=== PATIENT | female | born 1960 | race Hispanic/Latino ===

== ENCOUNTER 2018-11-26 19:11 | Inpatient (IN) | payer MEDICAID ==
[~2018-11-26] VITALS: Ht 165.1 cm; Wt 67.4 kg
[2018-11-26 20:09] LABS: BASOPHILS % (AUTO) 0.5 % (0.0-5.0); EOSINOPHILS % (AUTO) 1.2 % (0.0-8.0); LYMPHOCYTES % (AUTO) 18.2 % (21.0-51.0); MEAN CORPUSCULAR HEMOGLOBIN 26.2 pg (27.0-33.0); MEAN CORPUSCULAR HGB CONC 32.8 g/dL (32.0-36.0); MEAN CORPUSCULAR VOLUME 79.9 fL (79-99); MONOCYTES % (AUTO) 7.2 % (3.0-13.0); NEUTROPHILS % (AUTO) 72.9 % (40.0-77.0); PLATELET COUNT (AUTO) 382 K/uL (130-400); RED BLOOD CELL COUNT(AUTO) 4.14 MIL/uL (4.00-5.50); RED CELL DISTRIBUTION WIDTH 14.8 % (11.0-15.5); WHITE BLOOD COUNT (AUTO) 8.7 K/uL (4.8-10.8)
[2018-11-26 20:13] LABS: APPEARANCE,URINE Clear (CLEAR); BILIRUBIN,URINE Negative (NEGATIVE); COLOR,URINE Yellow (YELLOW); GLUCOSE, URINE (UA) TRACE mg/dL (NEGATIVE); KETONES,URINE Trace mg/dL (NEGATIVE); LEUKOCYTE ESTERASE ,URINE Large (NEGATIVE); NITRATE,URINE Negative (NEGATIVE); OCCULT BLOOD,URINE Small (NEGATIVE); PH,URINE 6.5 (5.0-8.0); PROTEIN,URINE Negative (NEGATIVE)
[2018-11-26 20:16] LABS: CREATININE 0.8 mg/dL (0.5-1.5); POTASSIUM 3.9 mmol/L (3.5-5.1)
[2018-11-26 20:24] LABS: ALBUMIN 3.1 g/dL (3.5-5.0); BILIRUBIN,TOTAL 0.2 mg/dL (0.2-1.0); CRP QUANTITATIVE 22.7 mg/L (0.00-9.0); TOTAL PROTEIN, SERUM 7.9 g/dL (6.0-8.3)
[2018-11-26 20:39] LABS: BACTERIA,URINE Few /HPF (None Seen); RBC,URINE 0-1 /HPF (0-1)
[2018-11-26 20:51] LABS: INR 0.91 (0.85-1.15); PROTHROMBIN TIME 9.6 SEC (9.6-11.6)
[2018-11-26 21:24] LABS: ERYTHROCYTE SEDIMENTATION RATE 95 MM/HR (0-30)
[2018-11-26] MEDS ORDERED: LEVOFLOXACIN 500 MG TABLET ONE (21:54)
[2018-11-26] MEDS ORDERED: DEXTROSE 50%-WATER 50 ML DISP.SYRIN IV PRN (22:30)
[2018-11-26] MEDS ORDERED: GLUCAGON 1MG KIT 1 MG ML IM PRN (22:30)
[2018-11-26 23:01] LABS: HEMOGLOBIN A1C 14.5 % (4.0-6.0)
[2018-11-26] MEDS: SODIUM CHLORIDE 0.9% 1000ML 1,000 ML IV SCH (23:35)
[2018-11-26] MEDS ORDERED: SODIUM CHLORIDE 0.9% 1000ML 1,000 ML IV ONE (23:43)
[2018-11-26] MEDS ORDERED: ONDANSETRON HCL 4 MG/2 ML VIAL IV PRN (23:45)
[2018-11-26] MEDS ORDERED: NITROGLYCERIN 0.4 MG SL TAB SL PRN (23:45)
[2018-11-26] MEDS ORDERED: ACETAMINOPHEN 325 MG TAB PO PRN (23:45)
[2018-11-27] VITALS (7 sets, daily range): BP systolic 154–198; BP diastolic 77–98
[2018-11-27] MEDS ORDERED: IOHEXOL-350 50ML VIAL IV ONE (01:03)
[2018-11-27] MEDS ORDERED: FERR-82 PO (02:10)
[2018-11-27] MEDS ORDERED: INSU200I4 SQ (02:10)
[2018-11-27] MEDS ORDERED: METO100T14 PO (02:10)
[2018-11-27] MEDS ORDERED: LISI40TA4 PO (02:10)
[2018-11-27] MEDS ORDERED: ROSU20TA31 PO (02:10)
[2018-11-27] MEDS ORDERED: INSU200I SQ (02:10)
[2018-11-27] MEDS ORDERED: ASPI-1197 PO (02:10)
[2018-11-27] MEDS: ZOSYN 3.375GM+NS 50ML 50 ML IV SCH ×2 (02:40→21:30)
[2018-11-27 04:55] LABS: BASOPHILS % (AUTO) 0.4 % (0.0-5.0); HEMATOCRIT 29.2 % (36-48); LYMPHOCYTES % (AUTO) 15.7 % (21.0-51.0); MEAN CORPUSCULAR HGB CONC 32.4 g/dL (32.0-36.0); MEAN CORPUSCULAR VOLUME 80.1 fL (79-99); MONOCYTES % (AUTO) 8.3 % (3.0-13.0); NEUTROPHILS % (AUTO) 74.6 % (40.0-77.0); PLATELET COUNT (AUTO) 341 K/uL (130-400); RED BLOOD CELL COUNT(AUTO) 3.65 MIL/uL (4.00-5.50); RED CELL DISTRIBUTION WIDTH 14.6 % (11.0-15.5); WHITE BLOOD COUNT (AUTO) 8.7 K/uL (4.8-10.8)
[2018-11-27 05:11] LABS: ALBUMIN 2.5 g/dL (3.5-5.0); BILIRUBIN,TOTAL 0.1 mg/dL (0.2-1.0); CREATININE 0.8 mg/dL (0.5-1.5); POTASSIUM 4.3 mmol/L (3.5-5.1); TOTAL PROTEIN, SERUM 6.8 g/dL (6.0-8.3)
[2018-11-27] MEDS: INSULIN HUMULIN R 100 UNIT/ML 3ML SQ SCH ×4 (06:55→21:00)
[2018-11-27] MEDS: ACETAMINOPHEN 325 MG TAB PO PRN (09:11)
[2018-11-27] MEDS: SODIUM CHLORIDE 0.9% 1000ML 1,000 ML IV SCH ×2 (09:12→21:19)
[2018-11-27] MEDS: ENOXAPARIN SODIUM 30 MG/0.3 ML SQ SCH (09:12)
[2018-11-27] MEDS: FAMOTIDINE 20MG TAB 20 MG TAB PO SCH ×2 (09:12→21:19)
[2018-11-27] MEDS ORDERED: ZOSYN 3.375GM+NS 50ML 50 ML IV SCH (10:00)
--- NOTE | 2018-11-27 16:00 | NUR ---
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
[2018-11-27] MEDS ORDERED: IOHEXOL-350 75 ML VIAL IV ONE (16:18)
[2018-11-27] MEDS: CLINDAMYCIN 600 MG/D5% WATER 50 ML IV SCH ×2 (16:51→21:32)
[2018-11-27] MEDS ORDERED: LISINOPRIL 40 MG TABLET ONE (19:06)
[2018-11-27] MEDS ORDERED: METOPROLOL TARTRATE 50 MG TAB ONE (19:07)
[2018-11-27] MEDS: LISINOPRIL 40 MG TABLET PO SCH (19:08)
[2018-11-27] MEDS: METOPROLOL TARTRATE 50 MG TAB PO SCH (19:08)
[2018-11-27] MEDS: INSULIN LISPRO 100 UNIT/ML 3ML SQ SCH (19:15)
[2018-11-27] MEDS: ATORVASTATIN CALCIUM 40 MG TABLET PO SCH (21:19)
[2018-11-28] VITALS: BP 163/86
[2018-11-28] MEDS: CLINDAMYCIN 600 MG/D5% WATER 50 ML IV SCH ×4 (02:57→21:22)
[2018-11-28 04:00] VITALS: BP 164/84
[2018-11-28] MEDS: INSULIN HUMULIN R 100 UNIT/ML 3ML SQ SCH ×4 (06:09→21:27)
[2018-11-28 06:13] LABS: BASOPHILS % (AUTO) 0.6 % (0.0-5.0); EOSINOPHILS % (AUTO) 1.4 % (0.0-8.0); HEMATOCRIT 28.3 % (36-48); LYMPHOCYTES % (AUTO) 21.4 % (21.0-51.0); MEAN CORPUSCULAR HGB CONC 32.4 g/dL (32.0-36.0); MEAN CORPUSCULAR VOLUME 80.3 fL (79-99); NEUTROPHILS % (AUTO) 68.6 % (40.0-77.0); PLATELET COUNT (AUTO) 341 K/uL (130-400); RED BLOOD CELL COUNT(AUTO) 3.53 MIL/uL (4.00-5.50); RED CELL DISTRIBUTION WIDTH 14.8 % (11.0-15.5); WHITE BLOOD COUNT (AUTO) 7.6 K/uL (4.8-10.8)
[2018-11-28 06:36] LABS: CREATININE 0.7 mg/dL (0.5-1.5); POTASSIUM 4.4 mmol/L (3.5-5.1)
[2018-11-28] MEDS: SODIUM CHLORIDE 0.9% 1000ML 1,000 ML IV SCH ×2 (06:50→15:58)
[2018-11-28] MEDS: INSULIN LISPRO 100 UNIT/ML 3ML SQ SCH ×3 (06:51→17:00)
[2018-11-28] MEDS: INSULIN GLARGINE 100 UNITS/ML 10 ML VIAL SQ SCH ×2 (06:52→18:45)
[2018-11-28 07:30] VITALS: BP 134/72
[2018-11-28] MEDS: FAMOTIDINE 20MG TAB 20 MG TAB PO SCH ×2 (09:45→21:15)
[2018-11-28] MEDS: ASPIRIN 81MG TAB.CHEW PO SCH (09:45)
[2018-11-28] MEDS: FERROUS SULFATE 325 MG TABLET.DR PO SCH (09:46)
[2018-11-28] MEDS: METOPROLOL TARTRATE 50 MG TAB PO SCH ×2 (09:46→21:15)
[2018-11-28] MEDS: ACETAMINOPHEN 325 MG TAB PO PRN (09:46)
[2018-11-28] MEDS: ENOXAPARIN SODIUM 30 MG/0.3 ML SQ SCH (09:47)
[2018-11-28 11:00] VITALS: BP 152/78
[2018-11-28] MEDS: DEXAMETHASONE SOD PHOSPHATE 4 MG/ML 1ML VIAL IVP SCH ×2 (13:26→18:46)
[2018-11-28] MEDS ORDERED: GADODIAMIDE 10 MMOL/20 ML VIAL IV ONE (14:37)
[2018-11-28] MEDS ORDERED: SILVER NITRATE APPLICATOR 1 SWAB TP SCH (14:45)
[2018-11-28 16:00] VITALS: BP 161/89
[2018-11-28 20:00] VITALS: BP 156/84
[2018-11-28] MEDS: LISINOPRIL 40 MG TABLET PO SCH (21:16)
[2018-11-28] MEDS: ATORVASTATIN CALCIUM 40 MG TABLET PO SCH (21:16)
[2018-11-29] VITALS (7 sets, daily range): BP systolic 142–165; BP diastolic 69–83
[2018-11-29] MEDS: DEXAMETHASONE SOD PHOSPHATE 4 MG/ML 1ML VIAL IVP SCH ×5 (00:10→23:26)
[2018-11-29] MEDS: SODIUM CHLORIDE 0.9% 1000ML 1,000 ML IV SCH (03:28)
[2018-11-29] MEDS: CLINDAMYCIN 600 MG/D5% WATER 50 ML IV SCH ×2 (03:28→10:07)
[2018-11-29] MEDS: INSULIN HUMULIN R 100 UNIT/ML 3ML SQ SCH ×4 (06:43→20:57)
[2018-11-29 06:46] LABS: HEMATOCRIT 30.1 % (36-48); MEAN CORPUSCULAR HEMOGLOBIN 25.9 pg (27.0-33.0); MEAN CORPUSCULAR HGB CONC 32.4 g/dL (32.0-36.0); MEAN CORPUSCULAR VOLUME 79.9 fL (79-99); NUCLEATED RED BLOOD CELLS 0.1 % (0.0-0.19); PLATELET COUNT (AUTO) 432 K/uL (130-400); RED BLOOD CELL COUNT(AUTO) 3.77 MIL/uL (4.00-5.50); RED CELL DISTRIBUTION WIDTH 14.9 % (11.0-15.5); WHITE BLOOD COUNT (AUTO) 9.1 K/uL (4.8-10.8)
[2018-11-29 06:55] LABS: POTASSIUM 4.4 mmol/L (3.5-5.1)
[2018-11-29] MEDS ORDERED: GADODIAMIDE 10 MMOL/20 ML VIAL IV ONE (07:35)
[2018-11-29] MEDS: FAMOTIDINE 20MG TAB 20 MG TAB PO SCH ×2 (09:57→20:52)
[2018-11-29] MEDS: ASPIRIN 81MG TAB.CHEW PO SCH (09:57)
[2018-11-29] MEDS: METOPROLOL TARTRATE 50 MG TAB PO SCH ×2 (09:57→20:52)
[2018-11-29] MEDS: POLYETHYLENE GLYCOL 3350 17 GM POWD.PACK PO SCH (09:57)
[2018-11-29] MEDS: FERROUS SULFATE 325 MG TABLET.DR PO SCH (09:57)
[2018-11-29] MEDS: ENOXAPARIN SODIUM 30 MG/0.3 ML SQ SCH (10:00)
[2018-11-29] MEDS: INSULIN LISPRO 100 UNIT/ML 3ML SQ SCH ×3 (10:05→16:57)
[2018-11-29] MEDS: INSULIN GLARGINE 100 UNITS/ML 10 ML VIAL SQ SCH ×2 (10:06→16:58)
[2018-11-29] MEDS: ASPIRIN 81 MG EC TAB PO SCH (10:16)
[2018-11-29] MEDS ORDERED: ARTIFICAL TEARS SOL 15 ML OD PRN (11:45)
[2018-11-29] MEDS: ZOSYN 3.375GM+NS 50ML 50 ML IV SCH ×2 (13:02→20:52)
--- NOTE | 2018-11-29 15:58 | NUR ---
patient returned from bone scan. completed.
--- NOTE | 2018-11-29 17:00 | NUR ---
wound care performed to left breast. Old dressing removed and discarded. Cleansed left breast with Ns, patted dry, painted with betadine, covered with 4x4 gauze and abd pad. pt tolerated well.
[2018-11-29] MEDS ORDERED: ARTIFICAL TEARS SOL 15 ML OU PRN (17:45)
[2018-11-29] MEDS: ATORVASTATIN CALCIUM 40 MG TABLET PO SCH (20:52)
[2018-11-29] MEDS: LISINOPRIL 40 MG TABLET PO SCH (20:52)
[2018-11-30] VITALS (7 sets, daily range): BP systolic 143–191; BP diastolic 67–92
[2018-11-30] MEDS: HYDROCODONE/ACETAMINOPHEN 5/325 MG TAB PO PRN ×2 (01:29→21:22)
--- NOTE | 2018-11-30 01:29 | NUR ---
HEADACHE Pt c/o of headache,medicated with Hydrocodone.
--- NOTE | 2018-11-30 02:29 | NUR ---
MED EFFECT Pt quietly resting,eyes closed.
[2018-11-30] MEDS: ZOSYN 3.375GM+NS 50ML 50 ML IV SCH ×3 (04:20→21:21)
[2018-11-30 05:13] LABS: HEMATOCRIT 26.4 % (36-48); MEAN CORPUSCULAR HEMOGLOBIN 26.3 pg (27.0-33.0); MEAN CORPUSCULAR VOLUME 79.5 fL (79-99); PLATELET COUNT (AUTO) 322 K/uL (130-400); RED BLOOD CELL COUNT(AUTO) 3.31 MIL/uL (4.00-5.50); RED CELL DISTRIBUTION WIDTH 14.8 % (11.0-15.5); WHITE BLOOD COUNT (AUTO) 12.8 K/uL (4.8-10.8)
[2018-11-30 05:30] LABS: INR 0.97 (0.85-1.15); PARTIAL THROMBOPLASTIN TIME 26.5 SEC (26.3-35.5); PROTHROMBIN TIME 10.2 SEC (9.6-11.6)
[2018-11-30] MEDS: INSULIN HUMULIN R 100 UNIT/ML 3ML SQ SCH ×4 (05:33→21:19)
[2018-11-30 05:37] LABS: CREATININE 0.8 mg/dL (0.5-1.5)
[2018-11-30] MEDS: DEXAMETHASONE SOD PHOSPHATE 4 MG/ML 1ML VIAL IVP SCH ×3 (05:58→17:55)
[2018-11-30] MEDS: INSULIN LISPRO 100 UNIT/ML 3ML SQ SCH ×3 (06:00→16:58)
[2018-11-30] MEDS: INSULIN GLARGINE 100 UNITS/ML 10 ML VIAL SQ SCH ×2 (06:00→16:57)
--- NOTE | 2018-11-30 06:53 | NUR ---
SHOWER Pt took a shower,dressing to left breast got wet,dressing changed,bleeding noted,pressure applied.Covered with 4x4,abd pad,and secured with medipore tape.Jesus well.
[2018-11-30] MEDS: ENOXAPARIN SODIUM 30 MG/0.3 ML SQ SCH (07:22)
[2018-11-30] MEDS: POLYETHYLENE GLYCOL 3350 17 GM POWD.PACK PO SCH (09:00)
[2018-11-30] MEDS: ASPIRIN 81 MG EC TAB PO SCH (09:00)
--- NOTE | 2018-11-30 12:20 | NUR ---
Patient taken for Breast Biopsy
--- NOTE | 2018-11-30 13:45 | NUR ---
U/S GD LEFT BREAST MASS BX PROCEDURE PERFORMED BY DR GARCIA . PUNCTURE SITE LEFT BREAST AND PATIENT TOLERATED PROCEDURE WELL. SPECIMEN X 3 COLLECTED AND SENT TO LAB. END OF PROCEDURE AT 1340. TISSUE MARKER DEPLOYED. BIOPSY NEEDLE REMOVED AND DRESSING APPLIED. NO BLEEDING NOTED. . REPORT GIVEN TO Kay ALEXANDER RN AND PATIENT TRANSPORTED TO 327 VIA W/C, STABLE, AAO X3 WITH NO C/O PAIN.
[2018-11-30] MEDS: METOPROLOL TARTRATE 50 MG TAB PO SCH ×2 (14:14→21:22)
[2018-11-30] MEDS: FAMOTIDINE 20MG TAB 20 MG TAB PO SCH ×2 (14:14→21:21)
[2018-11-30] MEDS: FERROUS SULFATE 325 MG TABLET.DR PO SCH (14:14)
--- NOTE | 2018-11-30 14:15 | NUR ---
Patient returned from breast biopsy in stable condition. Bed in lowest position, call light placed within reach
[2018-11-30] MEDS ORDERED: HYDRALAZINE HCL 20 MG/ML VIAL IM PRN (14:30)
--- NOTE | 2018-11-30 15:00 | NUR ---
ANNETTE AlvaradoP rounded on pt, pt to continue with antibiotic therapy
[2018-11-30] MEDS ORDERED: HYDRALAZINE HCL 20 MG/ML VIAL IM SCH (16:00)
[2018-11-30] MEDS ORDERED: HYDRALAZINE HCL 20 MG/ML VIAL IV SCH (18:30)
--- NOTE | 2018-11-30 20:00 | NUR ---
DRESSING Left breast dressing dry and intact.
[2018-11-30] MEDS: ATORVASTATIN CALCIUM 40 MG TABLET PO SCH (21:21)
[2018-11-30] MEDS: LISINOPRIL 40 MG TABLET PO SCH (21:22)
[2018-12-01] MEDS: DEXAMETHASONE SOD PHOSPHATE 4 MG/ML 1ML VIAL IVP SCH ×3 (00:20→12:40)
[2018-12-01 03:51] VITALS: BP 154/84
[2018-12-01] MEDS: ZOSYN 3.375GM+NS 50ML 50 ML IV SCH ×2 (04:37→12:00)
[2018-12-01] MEDS: INSULIN HUMULIN R 100 UNIT/ML 3ML SQ SCH ×2 (05:42→11:30)
[2018-12-01] MEDS: INSULIN GLARGINE 100 UNITS/ML 10 ML VIAL SQ SCH (06:31)
[2018-12-01] MEDS: INSULIN LISPRO 100 UNIT/ML 3ML SQ SCH ×2 (06:32→12:44)
[2018-12-01 06:47] LABS: HEMATOCRIT 27.5 % (36-48); MEAN CORPUSCULAR HEMOGLOBIN 25.6 pg (27.0-33.0); MEAN CORPUSCULAR HGB CONC 32.1 g/dL (32.0-36.0); MEAN CORPUSCULAR VOLUME 79.8 fL (79-99); PLATELET COUNT (AUTO) 359 K/uL (130-400); RED BLOOD CELL COUNT(AUTO) 3.45 MIL/uL (4.00-5.50); RED CELL DISTRIBUTION WIDTH 14.9 % (11.0-15.5); WHITE BLOOD COUNT (AUTO) 11.2 K/uL (4.8-10.8)
[2018-12-01 07:00] VITALS: BP 134/64
[2018-12-01 07:02] LABS: CREATININE 0.7 mg/dL (0.5-1.5)
[2018-12-01] MEDS: ENOXAPARIN SODIUM 30 MG/0.3 ML SQ SCH (10:05)
[2018-12-01] MEDS: ASPIRIN 81 MG EC TAB PO SCH (10:05)
[2018-12-01] MEDS: METOPROLOL TARTRATE 50 MG TAB PO SCH (10:05)
[2018-12-01] MEDS: POLYETHYLENE GLYCOL 3350 17 GM POWD.PACK PO SCH (10:05)
[2018-12-01] MEDS: FAMOTIDINE 20MG TAB 20 MG TAB PO SCH (10:06)
[2018-12-01] MEDS: FERROUS SULFATE 325 MG TABLET.DR PO SCH (10:07)
[2018-12-01 11:00] VITALS: BP 164/83
[2018-12-01] MEDS ORDERED: CEPH500T PO (13:22)
[2018-12-01] MEDS ORDERED: DEXA2 PO (13:30)
[2018-12-01] MEDS ORDERED: AMLODIPINE BESYLATE 5 MG TAB PO SCH (14:00)
[2018-12-01] MEDS ORDERED: METFORMIN HCL 850 MG TABLET PO SCH ×2 (14:00→17:00)
[2018-12-02] MEDS ORDERED: AMLODIPINE BESYLATE 5 MG TAB PO SCH (09:00)
== END 2018-12-01 19:00 | disposition home or self-care (01) | DRG 382 ==
LOC: EDH 19:11 → EDHIP 19:12 → OBSVTOIN 19:12 → 3DH 11-27 01:42
PROVIDERS: ADMIT Hospitalist; ATTEND Hospitalist
PROC: 0HBU3ZX Excision of Left Breast, Percutaneous Approach, Diagnostic (ICD-10-PCS; principal; 2018-11-30)
DX: C50.912 Malignant neoplasm of unspecified site of left female breast (principal); G93.6 Cerebral edema; I95.9 Hypotension, unspecified; C78.00 Secondary malignant neoplasm of unspecified lung; E11.65 Type 2 diabetes mellitus with hyperglycemia; L03.90 Cellulitis, unspecified; B95.1 Streptococcus, group B, as the cause of diseases classified elsewhere; B96.5 Pseudomonas (aeruginosa) (mallei) (pseudomallei) as the cause of diseases classified elsewhere; R91.8 Other nonspecific abnormal finding of lung field; N39.0 Urinary tract infection, site not specified; I10 Essential (primary) hypertension; E78.00 Pure hypercholesterolemia, unspecified; H53.2 Diplopia; M19.90 Unspecified osteoarthritis, unspecified site; N61.1 Abscess of the breast and nipple; T38.0X5A Adverse effect of glucocorticoids and synthetic analogues, initial encounter; Z79.4 Long term (current) use of insulin; Z80.3 Family history of malignant neoplasm of breast; Z80.8 Family history of malignant neoplasm of other organs or systems; Z82.49 Family history of ischemic heart disease and other diseases of the circulatory system; Z83.3 Family history of diabetes mellitus; Z74.01 Bed confinement status; Y92.89 Other specified places as the place of occurrence of the external cause
CPT/HCPCS: 19083; 36415; 70450; 70553; 71045; 71270; 74178; 76942; 78306; 80048; 80053; 81001; 82550; 82948; 83036; 84484; 85025; 85027; 85610; 85651; 85730; 86140; 86316; 87040; 87070; 87076; 87077; 87088; 87186; 88305; 93005; A9503; A9579; G0378; J0360; J1100; J1650; J1815; J2543; J3490; J7030; Q9967